=== PATIENT | female | born 1935 | race Caucasian/White ===

== ENCOUNTER → 2016-09-14 | Outpatient (CLI) | payer MEDICARE, BC ==
[~2016-09-14] MED LIST: AMIODARONE HCL100 MG PO; AMLODIPINE BESYL5 MG PO; ASPIRIN81 M2 PO; CLARITIN10 M2 PO; CO Q-10300 MG PO; COREG6.25 MG PO; FERROUS GLUCON324 M2 PO; K-DUR10 MEQ PO; LASIX20 MG PO; LEVO-T25 MCG PO; LISINOPRIL PO; LOPRESSOR PO; PRINIVIL20 M1 PO; VITAMIN B122500 MCG PO; VITAMIN D35000 UNI1 PO; XARELTO15 MG PO
--- NOTE | ~2016-09-14 | MY11 ---
[facility] A Service of [facility] RADIOLOGY TEXT RESULTS PATIENT: FRANDY CASTILLO LOCATION: [facility] #: [id number] : 37 UNIT #: [id number] AGE: [address]: Caity Disla MD SEX: F ORDER DR: [id number] [facility]. [place], [place] [address] [id number] O MR#: [id number] #: [id number] NAME: FRANDY CASTILLO : 1935 SEX: F STUDY DATE/TIME: 09/14/2016 14:39 UNIT: [facility] ROOM: STUDY DESCRIPTION: MY Mammogram Screening Dig Jayro Attending Physician: Caity Disla M.D. Referring Physician: Caity Disla M.D. Ordering Physician: Caity Disla M.D. Primary Care Physician: Caity Disla M.D. MEDICAL IMAGING REPORT This report is preliminary unless electronic signature is present EXAM Bilateral Digital Screening Mammogram with CAD INDICATION Breast cancer screening. 81-year-old asymptomatic females reports a grandmother with breast cancer. COMPARISON 07/13/2016 and 01/19/2016 FINDINGS There are scattered fibroglandular tissues. No suspicious findings are present. IMPRESSION No mammographic evidence of malignancy. Annual screening mammography and clinical breast exam are recommended. A result letter will be sent to the patient. Patients over the age of 40 are entered into a reminder system with target due date for the next mammogram. BIRADS: 1 Negative Dictated by... Sam Araujo M.D. [facility] A Service of [facility] RADIOLOGY TEXT RESULTS PATIENT: FRANDY CASTILLO LOCATION: [facility] : 37 UNIT #: [id number] AGE: [address]: Caity Disla MD SEX: F ORDER DR: THIS IS AN ELECTRONICALLY VERIFIED REPORT Sam Araujo M.D. at 09/16/2016 4:02 PM BLM/to TD: 09/14/2016 16:26 JOB #: [id number] MEDICAL IMAGING REPORT Page 1 of 1 COPY
== END | disposition home or self-care (01) ==
LOC: CWCC 14:32
DX: Z12.31 Encounter for screening mammogram for malignant neoplasm of breast (principal); Z80.3 Family history of malignant neoplasm of breast
CPT/HCPCS: G0202

== ENCOUNTER 2016-10-05 10:29 | Observation (INO) | payer MEDICARE, BC ==
--- NOTE | ~2016-10-05 | HP ---
Unit #: [id number] #: [id number] Patient: FRANDY CASTILLO [id number] [facility]. [place], [place] [address] [id number] E MR#: [id number] NAME: FRANDY CASTILLO ROOM: Age: 81 Sex: F Admission Date: 10/05/2016 : 1935 Attending Physician: Lex Luis M.D. Primary Care Physician: Caity Disla M.D. HISTORY AND PHYSICAL HISTORY OF PRESENT ILLNESS The patient is a 81-year-old white female who is known to Dr. Edward, who was diagnosed with atrial fibrillation 15 years ago. She was seen by Dr. Edward five years ago at the time when she had a cerebrovascular accident. She was placed on amiodarone and Xarelto. The patient has had episodes of palpitations, dizziness and lightheadedness since last Monday. She felt her heart beat "really fast." She had no loss of consciousness. She reports a hard pain in her back and substernal chest pressure that is better when she holds it with her hand. Today she had an episode of palpitations this morning where she became dizzy and nauseated. For this reason she came to the emergency room for evaluation. In the emergency room initial electrocardiogram showed atrial fibrillation with rapid ventricular response with a rate of 135 beats per minute. She converted to normal sinus rhythm at one point, but returned to atrial fibrillation with rapid ventricular response. She has had no history of rheumatic fever in the past. She reports high blood pressure, but no history of hyperlipidemia, diabetes or cardiovascular event in the past. She has had no prior cardiac testing. She lives a sedentary lifestyle and has a remote history of nicotine abuse. PAST MEDICAL HISTORY 1. Two-dimensional echocardiogram 12/21/2010 shows an ejection fraction equal to 55%-60%. Right atrium mildly dilated. Mild to moderate mitral regurgitation. Moderate tricuspid regurgitation. Mild aortic regurgitation. Atrial septum is aneurysmal. Right ventricular systolic pressure is 30-40 mmHg. 2. Hypertension. 3. Paroxysmal atrial fibrillation on anticoagulation with Xarelto. 4. Hypothyroidism. 5. Cerebrovascular accident five years ago with resultant limited use of left hand. 6. Chronic anemia. 7. Former smoker. PAST SURGICAL HISTORY No previous surgeries. SOCIAL HISTORY The patient lives at home alone. She quit smoking more than 35-40 years ago. She lives a sedentary lifestyle. Denies illicit drug and alcohol use. FAMILY HISTORY Unit #: [id number] #: [id number] Patient: FRANDY CASTILLO Negative for coronary artery disease. ALLERGIES No known drug allergies. HOME MEDICATIONS 1. Xarelto 15 mg daily. 2. Carvedilol 6.25 mg b.i.d. 3. Amlodipine 5 mg daily. 4. Amiodarone 100 mg daily. 5. Levothyroxine 25 mcg daily. 6. CoQ10 300 mg daily. 7. Claritin 10 mg daily. 8. Vitamin D3 5000 units daily. 9. Vitamin B12 1000 mcg daily. 10. Aspirin 81 mg daily. 11. Ferrous gluconate 324 mg daily. 12. Furosemide 20 mg daily. 13. Potassium chloride 10 mEq daily. REVIEW OF SYSTEMS CONSTITUTIONAL: Negative for fever or chills. No weight gain or weight loss. HEENT: No headache. No vision changes. No difficulty with swallowing. Positive for lightheadedness and dizziness. CARDIOVASCULAR: Has chest discomfort as described in history of present illness. Positive for palpitations. Denies paroxysmal nocturnal dyspnea or orthopnea. No syncope or near syncope. RESPIRATORY: Has slight dyspnea that accompanies palpitations. No cough or hemoptysis. GASTROINTESTINAL: No abdominal pain, nausea, vomiting, diarrhea, constipation or melena. EXTREMITIES: Negative for lower extremity edema. PHYSICAL EXAMINATION GENERAL: This is a pleasant 81-year-old elderly white female who is in no acute distress. VITALS: Blood pressure 104/93, heart rate 138, temperature 97.4. NECK: Trachea is midline. No thyromegaly or lymphadenopathy. No jugular venous distension. LUNGS: With wheezes in the left lung base. HEART: S1 and S2. Heart sounds normal. No murmurs, rubs or clicks. Irregularly irregular rhythm. ABDOMEN: Soft and nontender with bowel sounds present. SKIN: Warm and dry. NEUROLOGIC: She is awake, alert and oriented. There are no focal weaknesses. DIAGNOSTIC STUDIES IMAGING: Chest x-ray shows stable cardiomegaly. No heart failure or infiltrate. There is an 8 mm nodular density along the left sternal border that is unchanged from previous x-ray in 2016. LABORATORY: Hemoglobin 14.1, hematocrit 44.1, platelet count 176, white blood cell count 6.1. CK-MB less than 1.0, troponin less than 0.05. Glucose 112, BUN 12, creatinine 1.1, sodium 138, potassium 4.0, magnesium 1.9. TSH 1.55. Unit #: [id number] #: [id number] Patient: FRANDY CASTILLO CARDIOVASCULAR: Electrocardiogram, atrial fibrillation with rapid ventricular response, rate of 135 beats per minute. Right bundle branch block. ASSESSMENT 1. Recurrent atrial fibrillation with rapid ventricular response. Probably paroxysmal. 2. Hypertension. 3. Hypothyroidism. 4. History of cerebrovascular accident with left hand weakness. 5. Chronic anemia. 6. Left lung nodular density, unchanged from x-ray in 2016. PLAN 1. Will increase amiodarone to 400 mg b.i.d. to attempt to convert to normal sinus rhythm. 2. Carvedilol will be discontinued and will start on metoprolol 50 mg b.i.d. 3. Obtain two-dimensional echocardiogram to evaluate left ventricular systolic function. 4. Will ask for records to be sent from [facility]. 5. Continue to monitor serial cardiac enzymes and troponin. 6. TSH is normal. 7. Fasting lipid profile will be done and treated if necessary. 8. The patient will need repeat chest x-ray to evaluate left modular density in one year. Dictated by Alireza Dewitt A.P.R.N. for Javier Wick/lino TD: 10/05/2016 13:08 JOB #: [id number] CC: [facility] Javier Teresa M.D. HISTORY AND PHYSICAL Page 1 of 1 X Alireza Dewitt APRN HISTORY AND PHYSICAL
--- NOTE | ~2016-10-05 | HP ---
Unit #: [id number] #: [id number] Patient: FRANDY CASTILLO [id number] [facility]. [place], [place] [address] [id number] I MR#: [id number] NAME: FRANDY CASTILLO ROOM: [facility] Age: 81 Sex: F Admission Date: 10/05/2016 : 1935 Attending Physician: Osmany Cho M.D. Primary Care Physician: Caity Disla M.D. HISTORY AND PHYSICAL ADDENDUM The patient was admitted for paroxysmal atrial fibrillation with rapid ventricular response, but she converted to normal sinus rhythm after increase of amiodarone to 400 mg b.i.d. Carvedilol was discontinued and she was started on metoprolol 50 mg b.i.d. She was borderline hypotensive. Her blood pressure was 100/50 mmHg. Metoprolol was decreased to 25 mg b.i.d. She was continued on amiodarone at 200 mg daily. Norvasc was discontinued. She was started on lisinopril 10 mg p.o. at nighttime because of new findings of low ejection fraction per echocardiogram. Two-dimensional echocardiogram 10/05/2016 showed an ejection fraction of 40%-45%, with mild to moderate mitral regurgitation, mild to moderate tricuspid regurgitation and mild to moderate pulmonic valvular regurgitation. Right ventricular systolic pressure of 40 mmHg. The patient can be discharged home to follow up with Dr. Edward in two weeks. Follow up with primary care physician in two weeks. Dictated by Sana VitaleRKee for Javier Wick/lino TD: 10/06/2016 13:58 JOB #: [id number] CC: [facility] Javier Teresa M.D. HISTORY AND PHYSICAL Page 1 of 1 X Alireza Dewitt APRN X HISTORY AND PHYSICAL
--- NOTE | ~2016-10-05 | CR72 ---
[facility] A Service of [facility] RADIOLOGY TEXT RESULTS PATIENT: FRANDY CASTILLO LOCATION: [facility] : 37 UNIT #: [id number] AGE: [address]: Osmany Cho MD SEX: F ORDER DR: [id number] [facility] [address] [place], [place] [address] [id number] E MR#: [id number] #: [id number] NAME: FRANDY CASTILLO : 1935 SEX: F STUDY DATE/TIME: 10/05/2016 11:15 UNIT: [facility] ROOM: STUDY DESCRIPTION: CR Chest Single View Portable Attending Physician: Lex Luis M.D. Ordering Physician: Lex Luis M.D. Primary Care Physician: Caity Disla M.D. MEDICAL IMAGING REPORT This report is preliminary unless electronic signature is present EXAM Portable chest HISTORY Dizziness, chest pain, palpitations and shortness of breath for the past week. COMPARISON 08/30/2016 TECHNIQUE Single AP view chest was obtained. FINDINGS Thoracolumbar scoliosis is again noted. Cardiomegaly is seen and the aorta is tortuous. Pulmonary vascular markings are normal. No focal infiltrates are seen. A small nodular density is seen along the left heart border. It measures about 8 mm in diameter and is unchanged compared to previous chest x-rays dating back to 01/19/2016. This nodule was not noted on a previous chest x-ray in 2011. I recommend continued radiographic surveillance. This nodule should be confirmed stable over 2 years to ensure its benign status. I recommend follow up chest x-ray in 1 year. IMPRESSION 1. Stable cardiomegaly. No evidence of congestive heart failure. No active infiltrates are seen. 2. Small nodular density along the left heart border measuring 8 mm in diameter is unchanged from previous chest x-ray in December 2015 but this is new since previous chest x-ray in 2011. I recommend continued radiographic followup with a followup chest x-ray in 1 year. Dictated by... [facility] A Service of [facility] RADIOLOGY TEXT RESULTS PATIENT: FRANDY CASTILLO LOCATION: [facility] [id number] : 37 UNIT #: [id number] AGE: [address]: Osmany Cho MD SEX: F ORDER DR: Zack Starr M.D. THIS IS AN ELECTRONICALLY VERIFIED REPORT Zack Starr M.D. at 10/05/2016 6:21 PM FERNIE/matthew TD: 10/05/2016 11:47 JOB #: [id number] MEDICAL IMAGING REPORT Page 1 of 1 COPY
--- NOTE | ~2016-10-05 | EKG ---
PATIENT: FRANDY CASTILLO UNIT #: [id number] Ventricular Rate: 135 BPM Atrial Rate: 159 BPM QRS Duration: 120 ms Q-T Interval: 312 ms QTC Calculation(Bezet): 468 ms Calculated R [place]: -9 degrees Calculated T [place]: 16 degrees Diagnosis Line: Atrial fibrillation with rapid ventricular Diagnosis Line: response Diagnosis Line: Right bundle branch block with repolarization Diagnosis Line: abnormality Diagnosis Line: Abnormal ECG Diagnosis Line: No previous ECGs available Diagnosis Line: Confirmed by VAL RIOS MD ([id number]) on 10/06/2016 Diagnosis Line: 10:36:13 AM INTERPRETING MD: BLANCA CARL
[2016-10-05 11:17] LABS: POC - CKMB <1.0 ng/mL (0.0-7.9); POC - TROPONIN <0.05 ng/mL (<=0.05)
[2016-10-05 11:18] LABS: BASOPHIL# 0.1 X10e3 (0-0.3); EOSINOPHIL# 0.1 X10e3 (0-0.7); EOSINOPHIL% 1.7 % (0.0-7.0); HEMATOCRIT 44.1 % (35.0-45.0); HEMOGLOBIN 14.1 gm/dL (12.0-16.0); LYMPHOCYTE# 1.3 X10e3 (1.0-3.5); LYMPHOCYTE% 20.6 % (17.0-45.0); MEAN CELL VOLUME 89.6 FL (83-96); MEAN CORPUSCULAR HEMOGLOBIN 28.5 PG (28-34); MEAN CORPUSCULAR HGB CONC 31.9 g/dL (30-36); MEAN PLATELET VOLUME 9.6 FL (6.5-11.5); MONOCYTE# 0.4 X10e3 (0-1.0); MONOCYTE% 7.1 % (3.0-12.0); NEUTROPHIL# 4.3 X10e3 (1.5-7.1); NEUTROPHIL% 69.6 % (40-75); PLATELET COUNT 176 X10e3 (140-420); RED BLOOD COUNT 4.93 X10e (3.90-5.30); RED CELL DISTRIBUTION WIDTH 19.7 % (11.0-15.5); WHITE BLOOD COUNT 6.1 X10e3 (4.0-10.5)
[2016-10-05 11:21] LABS: DIFF IND NO
[2016-10-05] MEDS ORDERED: XARELTO15 MG PO (11:36)
[2016-10-05] MEDS ORDERED: PRINIVIL20 M1 PO (11:37)
[2016-10-05] MEDS ORDERED: COREG6.25 MG PO (11:37)
[2016-10-05] MEDS ORDERED: AMLODIPINE BESYL5 MG PO (11:37)
[2016-10-05] MEDS ORDERED: LEVO-T25 MCG PO (11:38)
[2016-10-05] MEDS ORDERED: AMIODARONE HCL100 MG PO (11:38)
[2016-10-05] MEDS ORDERED: VITAMIN D35000 UNI1 PO (11:39)
[2016-10-05] MEDS ORDERED: CLARITIN10 M2 PO (11:39)
[2016-10-05] MEDS ORDERED: CO Q-10300 MG PO (11:39)
[2016-10-05] MEDS ORDERED: VITAMIN B122500 MCG PO (11:40)
[2016-10-05 11:41] LABS: ALBUMIN SERUM 4.3 g/dL (3.5-5.0); BILIRUBIN, DIRECT 0.2 mg/dL (0.0-0.2); BILIRUBIN,INDIRECT 0.4 mg/dL (0.0-0.9); BILIRUBIN,TOTAL 0.6 mg/dL (0.2-2.0); BUN/CREATININE RATIO 10.9; CALCIUM SERUM 9.1 mg/dL (8.4-10.2); CREATININE SERUM 1.1 mg/dL (0.6-1.4); GLOM FILT RATE Estimated 47.7 mL/min (>60); MAGNESIUM 1.9 mg/dL (1.6-3.0); PROTEIN TOTAL SERUM 7.3 g/dL (6.0-8.3)
[2016-10-05] MEDS ORDERED: FERROUS GLUCON324 M2 PO (11:41)
[2016-10-05] MEDS ORDERED: LASIX20 MG PO (11:41)
[2016-10-05] MEDS ORDERED: K-DUR10 MEQ PO (11:41)
[2016-10-05] MEDS ORDERED: ASPIRIN81 M2 PO (11:41)
[2016-10-05 17:21] LABS: CK TOTAL 34 IU/L (26-140)
[2016-10-06 00:05] LABS: %MB 2.2 % (0.0-4.0); MB 1.5 ng/ml
[2016-10-06 06:52] LABS: CHOLESTEROL 166 mg/dL (0-200); HDL CHOLESTEROL 67 mg/dL (35-95); LDL CHOLESTEROL 85 mg/dL (-130); LDL/HDL RATIO 1 RATIO (0-4); TRIGLYCERIDES 70 mg/dL (10-160)
[2016-10-06] MEDS ORDERED: LOPRESSOR PO (13:45)
[2016-10-06] MEDS ORDERED: LISINOPRIL PO (13:46)
== END 2016-10-06 16:49 | disposition home or self-care (01) ==
LOC: CED 10:29 → CEDOF 12:40 → CED 13:27 → CEDOF 13:27 → C5C 20:07
PROVIDERS: Emergency Medicine; Internal Medicine Cardiovascular Disease
DX: I48.0 Paroxysmal atrial fibrillation (principal); I08.8 Other rheumatic multiple valve diseases; I69.354 Hemiplegia and hemiparesis following cerebral infarction affecting left non-dominant side; Z79.01 Long term (current) use of anticoagulants; I10 Essential (primary) hypertension; E03.9 Hypothyroidism, unspecified; R91.1 Solitary pulmonary nodule; D64.9 Anemia, unspecified; Z87.891 Personal history of nicotine dependence
CPT/HCPCS: 36415; 71010; 80048; 80061; 80076; 82550; 82553; 83735; 84443; 84484; 85025; 93005; 93306; 99285; G0378

== ENCOUNTER → 2016-11-16 | Outpatient (CLI) | payer MEDICARE, BC ==
--- NOTE | ~2016-11-16 | HM ---
Unit #: [id number] #: [id number] Patient: FRANDY CASTILLO [id number] [facility] [address] [facility]. [place], [place] [address] [id number] O MR#: [id number] NAME: FRANDY CASTILLO. : 1935 SEX: F STUDY DATE/TIME: 11/16/2016 UNIT: [facility] ROOM: STUDY DESCRIPTION: Attending Physician: Caity Disla M.D. Referring Physician: Caity iDsla M.D. Primary Care Physician: Caity Disla M.D. CARDIOLOGY REPORT EXAM 24-hour Holter monitor. DATE APPLIED 11/16/2016 DATE SCANNED 11/26/2016 READ BY [facility]. ORDERED BY Caity Disla M.D. REASON FOR STUDY Palpitations. FINDINGS 1. Underlying rhythm is normal sinus at an average heart rate of 54 beats per minute. 2. Slowest recorded heart rate is 41 beats per minute seen at 6:51 a.m. 3. This slow heart rate is caused by underlying normal sinus rhythm with atrial bigeminy with nonconducted PACs. Occasional premature atrial contractions are noted with 570 isolated PACs and 94 premature atrial couplets. There are no runs of atrial tachycardia, atrial fibrillation, or AV joe block. 4. There was one PVC noted in 24 hours. 5. Underlying right bundle branch block conduction delay is seen. IMPRESSION A 24-hour ambulatory monitoring shows: 1. Normal sinus rhythm. 2. Frequent premature atrial contractions with numerous nonconducted PACs causing significant bradycardia with the slowest recorded heart rate of 41 beats per minute. 3. No tachy arrhythmia is noted. 4. No high-grade AV block. 5. The patient did not report any symptoms. Unit #: [id number] #: [id number] Patient: FRANDY CASTILLO Dictated by... Javier Wick TD: 11/28/2016 10:01 JOB #: [id number] CARDIOLOGY REPORT Page 1 of 1 X Osmany Cho MD HOLTER MONITOR REPORT
== END | disposition home or self-care (01) ==
LOC: CEKG 11-15 08:30
DX: M81.8 Other osteoporosis without current pathological fracture (principal); M89.9 Disorder of bone, unspecified
CPT/HCPCS: 93225; 93226

== ENCOUNTER → 2016-11-25 | Outpatient (CLI) | payer MEDICARE, BC ==
--- NOTE | ~2016-11-25 | BD1 ---
[facility] A Service of [facility] RADIOLOGY TEXT RESULTS PATIENT: FRANDY CASTILLO LOCATION: [facility] : 37 UNIT #: [id number] AGE: [address]: Caity Disla MD SEX: F ORDER DR: [id number] [facility] [address] [place], [place] [address] [id number] O MR#: [id number] Acc #: [id number] NAME: FRANDY CASTILLO : 1935 SEX: F STUDY DATE/TIME: 11/25/2016 10:35 UNIT: [facility] ROOM: STUDY DESCRIPTION: BD Dexa Bone Dens 1+ Site Attending Physician: Caity Disla M.D. Ordering Physician: Caity Disla M.D. Primary Care Physician: Caity Disla M.D. MEDICAL IMAGING REPORT This report is preliminary unless electronic signature is present EXAM DXA scan, 11/25/2016. HISTORY Status post menopause with no hormone replacement therapy. Osteopenia. Hysterectomy at age 47. Family history of breast carcinoma in grandmother. Smoking history. FINDINGS Bone mineral density in the lumbar spine from L1-L4 is 0.755 g/cm2, which is 2.7 standard deviations below the mean when compared to the young adult reference population, which is characteristic of osteoporosis. This is 0 standard deviations from the mean when compared to the age-matched population. Bone mineral density in the left femoral neck was 0.461 g/cm2, which is 3.5 standard deviations below the mean when compared to the young adult reference population, which is characteristic of osteoporosis. This is 1.2 standard deviations below the mean when compared to the age-matched population. IMPRESSION Bone mineral density in the lumbar spine and left hip characteristic of osteoporosis. Dictated by... Nick Martinez M.D. THIS IS AN ELECTRONICALLY VERIFIED REPORT Nick Martinez M.D. at 11/25/2016 5:35 PM MAURILIO/alvina TD: 11/25/2016 13:07 JOB #: [id number] [facility] A Service of [facility] RADIOLOGY TEXT RESULTS PATIENT: FRANDY CASTILLO LOCATION: [facility] #: [id number] : 37 UNIT #: [id number] AGE: [address]: Caity Disla MD SEX: F ORDER DR: MEDICAL IMAGING REPORT Page 1 of 1 COPY
== END | disposition home or self-care (01) ==
LOC: CWCC 09:59
DX: M89.9 Disorder of bone, unspecified (principal); M81.8 Other osteoporosis without current pathological fracture
CPT/HCPCS: 77080